=== PATIENT | male | born 1975 | race African-American/Black ===

== ENCOUNTER 2017-07-21 06:48 | Emergency (ER) | payer BC, MEDICAID ==
[~2017-07-21] VITALS: Ht 177.8 cm; Wt 113.0 kg
[2017-07-21] MEDS ORDERED: KETOROLAC 60MG/2ML VIAL IM ONE (08:45)
[2017-07-21 09:52] VITALS: BP 146/98
== END 2017-07-21 10:07 | disposition home or self-care (01) ==
LOC: ER 08:20
DX: M75.01 Adhesive capsulitis of right shoulder (principal); F17.200 Nicotine dependence, unspecified, uncomplicated
CPT/HCPCS: 96372; 99283; J1885

== ENCOUNTER 2019-05-11 13:31 | Emergency (ER) | payer MEDICAID, OTHER ==
[~2019-05-11] VITALS: Ht 177.8 cm; Wt 107.0 kg
[2019-05-11] MEDS ORDERED: ACETAMINOPHEN WITH CODEINE 300/30MG TABLET PO STA (16:24)
[2019-05-11] MEDS ORDERED: AMOXICILLIN/POTASSIUM CLAVULANATE 875/125MG TAB PO ONE (16:30)
[2019-05-11] MEDS ORDERED: METRONIDAZOLE 500MG TABLET PO ONE (16:30)
[2019-05-11 17:19] LABS: CHLORIDE 108 mEq/L (98-107)
[2019-05-11 17:20] LABS: BASOPHILS % 0.6 % (0.0-2.0); EOSINOPHILS % 2.3 % (0.0-5.0); HEMATOCRIT. 43.4 % (42.0-52.0); HEMOGLOBIN. 14.6 g/dL (14.0-18.0); LYMPHOCYTES % 34.9 % (20.0-50.0); MEAN CORPUSCULAR HEMOGLOBIN 30.9 pg (28.0-32.0); MEAN CORPUSCULAR VOLUME 91.9 fL (80.0-94.0); MEAN PLATELET VOLUME 8.3 fl (7.4-10.4); MONOCYTES % 5.6 % (2.0-8.0); NEUTROPHILS % 56.6 % (40.0-76.0); PLATELET 308 x1000/uL (130-400); RED BLOOD CELL COUNT 4.72 mill/uL (4.7-6.1); RED CELL DISTRIBUTION WIDTH 14.1 % (11.6-14.6)
[2019-05-11 17:34] VITALS: BP 154/87
== END 2019-05-11 17:38 | disposition home or self-care (01) ==
LOC: ER 13:31
DX: K57.92 Diverticulitis of intestine, part unspecified, without perforation or abscess without bleeding (principal); I10 Essential (primary) hypertension; F17.210 Nicotine dependence, cigarettes, uncomplicated; Z71.6 Tobacco abuse counseling
CPT/HCPCS: 36415; 80053; 83690; 85025; 99284; 99406; Z7610

== ENCOUNTER 2019-05-15 10:28 | Emergency (ER) | payer MEDICAID, OTHER | END 2019-05-15 11:45 | disposition left against medical advice (07) | LOC: ER 10:28 | DX: K92.0 Hematemesis (principal); Z53.21 Procedure and treatment not carried out due to patient leaving prior to being seen by health care provider ==

== ENCOUNTER 2022-07-25 19:47 | Emergency (ER) | payer MEDICAID, OTHER ==
[~2022-07-25] VITALS: Ht 177.8 cm; Wt 102.0 kg
[~2022-07-25 19:47] MED LIST: HYDR-4001 MT
[2022-07-25] MEDS ORDERED: TETANUS, DIPHTHERIA, PERTUSSIS VAC/PF 0.5ML (>10YR OLD) IM ONE (20:30)
[2022-07-25] MEDS ORDERED: KETOROLAC 60MG/2ML VIAL IM ONE (20:30)
[2022-07-25 20:53] VITALS: BP 183/110
[2022-07-25] MEDS ORDERED: IBUP-2028 MT (21:17)
== END 2022-07-25 21:33 | disposition home or self-care (01) ==
LOC: ER 19:47
DX: R51.9 Headache, unspecified (principal); M54.2 Cervicalgia; R10.9 Unspecified abdominal pain; I10 Essential (primary) hypertension; Z98.890 Other specified postprocedural states
CPT/HCPCS: 70450; 72125; 90471; 90715; 96372; 99285; J1885; Z7610

== ENCOUNTER 2023-12-18 22:17 | Emergency (ER) | payer MEDICAID, OTHER ==
[~2023-12-18] VITALS: Ht 177.8 cm; Wt 113.0 kg
[~2023-12-18 22:17] MED LIST changes: +IBUP-2028 MT
[2023-12-18 22:27] VITALS: O2SAT 97
[2023-12-19] MEDS ORDERED: POLY15DR31 EACHEYE (00:09)
[2023-12-19] MEDS: ACETAMINOPHEN 325MG TABLET PO ONE (00:25)
[2023-12-19 00:28] VITALS: BP 137/89; PULSE 100; RESP 18; TEMP 36.55848; O2SAT 97
== END 2023-12-19 00:31 | disposition home or self-care (01) ==
LOC: ER 22:17
DX: H57.13 Ocular pain, bilateral (principal); I10 Essential (primary) hypertension; Z98.890 Other specified postprocedural states
CPT/HCPCS: 99283

== ENCOUNTER 2024-12-31 17:51 | Emergency (ER) | payer MEDICAID ==
[~2024-12-31] VITALS: Ht 177.8 cm; Wt 100.0 kg
[~2024-12-31 17:51] MED LIST changes: +POLY15DR31 EACHEYE
[2024-12-31 17:52] VITALS: O2SAT 96
[2024-12-31 18:04] VITALS: BP 159/103; PULSE 111; RESP 16; TEMP 36.6; O2SAT 98
== END 2024-12-31 19:02 | disposition home or self-care (01) ==
LOC: ER 17:51
DX: S01.412D Laceration without foreign body of left cheek and temporomandibular area, subsequent encounter (principal); I10 Essential (primary) hypertension; X58.XXXD Exposure to other specified factors, subsequent encounter
CPT/HCPCS: 99281; Z7610 ×2